=== PATIENT | male | born 1975 | race Caucasian/White ===

== ENCOUNTER 2019-05-18 15:01 | Emergency (ER) | payer OTHER ==
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
[2019-05-18 17:11] VITALS: BP 131/72
== END 2019-05-18 17:10 | disposition home or self-care (01) ==
LOC: ED 15:01
DX: S01.81XA Laceration without foreign body of other part of head, initial encounter (principal); S09.90XA Unspecified injury of head, initial encounter; W22.8XXA Striking against or struck by other objects, initial encounter; Y93.89 Activity, other specified; Y92.9 Unspecified place or not applicable; Z88.0 Allergy status to penicillin; Z87.891 Personal history of nicotine dependence
CPT/HCPCS: 12013; 99282